=== PATIENT | female | born 1980 | race Caucasian/White ===

== ENCOUNTER 2023-11-27 12:17 | Emergency (ER) | payer BC ==
[~2023-11-27] VITALS: Ht 152.4 cm; Wt 63.5 kg
[2023-11-27] MEDS ORDERED: CYCLOBENZAPRINE5 M3 PO (12:40)
[2023-11-27] MEDS ORDERED: Ketorolac Tromethamine 30 MG/ML VIAL IM ONE (12:45)
== END 2023-11-27 13:03 | disposition home or self-care (01) ==
LOC: ED 12:17
DX: M54.41 Lumbago with sciatica, right side (principal)